=== PATIENT | female | born 1985 ===

== ENCOUNTER 2022-12-24 23:29 | Inpatient (IN) | payer SELFPAY ==
[2022-12-25] MEDS ORDERED: Sodium Chloride 0.9% 20 ML SDV IV PRN (01:53)
[2022-12-25] MEDS ORDERED: Sodium Chloride 0.9% 2.5 ML Syringe FLUSH PRN (01:53)
[2022-12-25] MEDS ORDERED: Citric Acid/Sodium Citrate Solution 30 ML Cup PO ONE (01:53)
[2022-12-25] MEDS ORDERED: Sodium Chloride 0.9% 10 ML Syringe FLUSH PRN (01:53)
[2022-12-25] MEDS ORDERED: Oxytocin/0.9 % Sodium Chloride 30 UNIT/500 ML BAG IV SCH ×2 (02:00→03:00)
[2022-12-25] MEDS ORDERED: Lactated Ringers 1,000 ML IV SCH ×2 (02:00→03:00)
[2022-12-25 02:15] LABS: HEMOGLOBIN 10.2 g/dL (12.0-16.0); MEAN CORPUSCULAR HEMOGLOBIN 29.9 pg (28.0-32.0); MEAN PLATELET VOLUME 11.1 fL (9.4-12.3); PLATELET COUNT,PLT 226 K/uL (150-400); RED BLOOD CELL COUNT 3.41 M/uL (4.10-5.30); WHITE BLOOD CELL COUNT,WBC 9.02 K/uL (3.9-11.3)
[2022-12-25] MEDS ORDERED: Ketorolac 30 MG/ML SDV ONE (02:19)
[2022-12-25] MEDS ORDERED: Dexamethasone 4 MG/ML 5 ML MDV ONE (02:19)
[2022-12-25] MEDS ORDERED: fentaNYL 100 MCG/2 ML SDV ONE (02:19)
[2022-12-25] MEDS ORDERED: Ondansetron 4 MG/2 ML SDV ONE (02:19)
[2022-12-25] MEDS ORDERED: ceFAZolin 1 GM Vial ONE (02:19)
[2022-12-25] MEDS ORDERED: Morphine PF 10 MG/10 ML SDV ONE (02:19)
[2022-12-25] MEDS ORDERED: Oxytocin 10 Units/1 ML SDV ONE (02:19)
[2022-12-25] MEDS ORDERED: Ropivacaine 0.5% 5 MG/ML 30 ML SDV ONE (02:19)
[2022-12-25] MEDS ORDERED: Bupivacaine 0.25% 30 ML SDV ONE (02:20)
[2022-12-25] MEDS ORDERED: Phenylephrine 1% 10 MG/ML SDV ONE (02:21)
[2022-12-25] MEDS ORDERED: EPINEPHrine 1 MG/1 ML Amp ONE (02:30)
[2022-12-25] MEDS ORDERED: Azithromycin 500 MG Vial ONE (02:45)
[2022-12-25] MEDS ORDERED: Misoprostol 200 MCG Tab RECTAL PRN (02:50)
[2022-12-25] MEDS ORDERED: Methylergonovine 0.2 MG/1 ML Amp IM PRN (02:50)
[2022-12-25] MEDS ORDERED: diphenhydrAMINE 50 MG/ML SDV IVPUSH PRN ×2 (02:50→04:26)
[2022-12-25] MEDS ORDERED: Acetaminophen/oxyCODONE 325-5 MG Tab PO PRN ×3 (02:50→04:26)
[2022-12-25] MEDS ORDERED: Ondansetron 4 MG/2 ML SDV IVPUSH PRN ×3 (02:50→04:26)
[2022-12-25] MEDS ORDERED: Oxytocin 10 Units/1 ML SDV IM PRN (02:50)
[2022-12-25] MEDS ORDERED: Bisacodyl 10 MG Supp RECTAL PRN (02:50)
[2022-12-25] MEDS ORDERED: Lanolin 100% Cream 7 GM Tube TOP PRN (02:50)
[2022-12-25] MEDS ORDERED: Ketorolac 30 MG/ML SDV IVPUSH SCH (03:00)
[2022-12-25] MEDS ORDERED: Morphine 2 MG/ML SYRINGE IVPUSH PRN (04:26)
[2022-12-25] MEDS ORDERED: Naloxone 0.4 MG/ML SDV IVPUSH PRN (04:26)
[2022-12-25] MEDS ORDERED: fentaNYL 50 MCG/ML SDV IVPUSH PRN (04:26)
[2022-12-25] MEDS ORDERED: ePHEDrine 50 MG/ML SDV IVPUSH PRN (04:26)
[2022-12-25] MEDS ORDERED: HYDROmorphone 1 MG/ML Syringe IVPUSH PRN (04:26)
[2022-12-25] MEDS ORDERED: fentaNYL 100 MCG/2 ML SDV IVPUSH PRN (04:26)
[2022-12-25] MEDS ORDERED: Metoclopramide 10 MG/2 ML SDV IVPUSH PRN (04:26)
[2022-12-25] MEDS ORDERED: droPERidol 5 MG/2 ML SDV IVPUSH PRN (04:26)
[2022-12-25] MEDS ORDERED: Albuterol 0.083% 2.5 MG/3 ML Neb Soln NEB PRN (04:26)
[2022-12-25] MEDS: Ketorolac 30 MG/ML SDV IVPUSH SCH ×3 (10:28→22:41)
[2022-12-25] MEDS: Acetaminophen 1,000 MG in Premix Bag 1 BAG IV PRN ×2 (10:42→16:59)
[2022-12-25] MEDS: Docusate Sodium 100 MG Cap PO SCH ×2 (10:43→22:47)
[2022-12-25] MEDS: Acetaminophen 1,000 MG in Premix Bag 1 BAG IV SCH (23:06)
[2022-12-26] MEDS: Ketorolac 30 MG/ML SDV IVPUSH SCH (04:49)
[2022-12-26] MEDS: Acetaminophen 1,000 MG in Premix Bag 1 BAG IV SCH (05:08)
[2022-12-26 05:51] LABS: HEMATOCRIT 24.2 % (37.0-47.0); HEMOGLOBIN 8.2 g/dL (12.0-16.0)
[2022-12-26] MEDS: Docusate Sodium 100 MG Cap PO SCH (10:27)
[2022-12-26] MEDS ORDERED: Ibuprofen 800 MG Tab PO PRN (10:30)
== END 2022-12-26 20:45 | disposition home or self-care (01) | DRG 788 ==
LOC: EDBD → MW.OBCHECK 23:29 → MW.OB 23:29 → MW.OBCHECK 12-25 01:53 → MW.OB 12-25 12:38
PROVIDERS: ADMIT Obstetrics & Gynecology Obstetrics; ATTEND Obstetrics & Gynecology Obstetrics
PROC: 10D00Z1 Extraction of Products of Conception, Low, Open Approach (ICD-10-PCS; principal; 2022-12-25 02:49)
DX: O34.211 Maternal care for low transverse scar from previous cesarean delivery (principal); O42.02 Full-term premature rupture of membranes, onset of labor within 24 hours of rupture; Z3A.39 39 weeks gestation of pregnancy; Z37.0 Single live birth
CPT/HCPCS: 01961; 36415; 59025; 64488; 84112; 85014; 85018; 85027; 86592; 86850; 86900; 86901; A9270-GY; J0131; J0171; J0456; J0690; J1100; J1200; J1885; J2274; J2371; J2405; J2590; J2765; J2795; J3010; J3490; J7120

== ENCOUNTER 2024-03-04 19:45 | Emergency (ER) | payer BC ==
[2024-03-04] MEDS: Magnesium Sulfate/Water Premix 2 GM in Premix Bag 1 BAG IV STA (21:12)
[2024-03-04] MEDS: Sodium Chloride 0.9% 1,000 ML IV STA (21:12)
[2024-03-04] MEDS: Ketorolac 30 MG/ML SDV IVPUSH STA (21:14)
[2024-03-04] MEDS: Ondansetron 4 MG/2 ML SDV IVPUSH STA (21:14)
[2024-03-04 21:18] LABS: BASOPHILS ABSOLUTE AUTO 0.03 K/uL (0.00-0.20); BASOPHILS PERCENT AUTO 0.4 % (0.0-1.0); EOSINOPHILS ABSOLUTE AUTO 0.11 K/uL (0.00-0.45); EOSINOPHILS PERCENT AUTO 1.6 % (0.0-6.0); HEMATOCRIT 37.3 % (37.0-47.0); HEMOGLOBIN 12.6 g/dL (12.0-16.0); IMMATURE GRAN ABSOLUTE AUTO 0.01 K/uL (0.00-0.05); IMMATURE GRAN PERCENT AUTO 0.1 % (0.0-0.4); LYMPHOCYTES ABSOLUTE AUTO 2.04 K/uL (1.00-4.80); LYMPHOCYTES PERCENT AUTO 29.7 % (24.0-44.0); MEAN CORPUSCULAR HGB CONC 33.8 g/dL (32.0-36.0); MEAN CORPUSCULAR VOLUME 85.9 fL (83.0-99.0); MEAN PLATELET VOLUME 9.7 fL (9.4-12.3); MONOCYTES ABSOLUTE AUTO 0.46 K/uL (0.00-0.80); MONOCYTES PERCENT AUTO 6.7 % (0.0-8.0); NEUTROPHILS ABSOLUTE AUTO 4.23 K/uL (1.80-7.70); NEUTROPHILS PERCENT AUTO 61.5 % (41.0-71.0); PLATELET COUNT,PLT 353 K/uL (150-400); RED BLOOD CELL COUNT 4.34 M/uL (4.10-5.30); WHITE BLOOD CELL COUNT,WBC 6.88 K/uL (3.9-11.3)
[2024-03-04 21:49] LABS: A/G RATIO 0.9 (0.9-1.6); ALBUMIN 3.6 g/dL (3.4-5.0); BILIRUBIN TOTAL 0.2 mg/dL (0.2-1.0); CALCIUM 9.2 mg/dL (8.5-10.1); CREATININE 0.6 mg/dL (0.6-1.0); EST CRCL DRUG DOSING (CG) 121.35 mL/min; POTASSIUM,K 4.6 mmol/L (3.5-5.1); PROTEIN TOTAL,TP 7.5 g/dL (6.4-8.2)
== END 2024-03-04 22:50 | disposition home or self-care (01) ==
LOC: MW.ED 19:45
DX: O99.350 Diseases of the nervous system complicating pregnancy, unspecified trimester (principal); G43.909 Migraine, unspecified, not intractable, without status migrainosus; Z90.49 Acquired absence of other specified parts of digestive tract; Z79.899 Other long term (current) drug therapy; Z75.8 Other problems related to medical facilities and other health care; Z3A.00 Weeks of gestation of pregnancy not specified
CPT/HCPCS: 36415; 80053; 84703; 85025; 87428; 96365; 96375; 99284; J1885; J2405; J3475; J7030